=== PATIENT | female | born 1980 | race Caucasian/White ===

== ENCOUNTER 2018-02-12 13:56 | Emergency (ER) | payer SELFPAY ==
[2018-02-12 14:22] VITALS: BP 113/70
[2018-02-12] MEDS ORDERED: DIPH,PERTUSS(ACELL),TET VAC/PF 0.5 ML DISP.SYRIN IM ONE (14:27)
--- NOTE | 2018-02-12 14:32 | ED Physician Documentation ---
Foot Injury - HISTORIAN Historian: patient - HPI Stated Complaint: puncture wound Chief Complaint: Foot Injury Additional Information: Stepped on nail while taking down old deer blind at 1330 today. Last tetanus 20 years or more, - ROS CONST: no problems - PAST HX Past History: other (hysterectomy) Allergies/Adverse Reactions: Allergies Allergy/AdvReac Type Severity Reaction Status Date / Time aspirin AdvReac Severe Vomiting Verified 02/12/18 14:15 Home Medications: Ambulatory Orders Medication Instructions Recorded NK [NK] 02/12/18 - SOCIAL HX Smoking History: cigarettes - FAMILY HX Family History: no significant history - VITAL SIGNS Vital Signs: Vital Signs Temp Pulse Resp BP Pulse Ox 97.6 F 86 18 113/70 93 02/12/18 14:00 02/12/18 14:00 02/12/18 14:00 02/12/18 14:00 02/12/18 14:00 - REVIEWED ASSESSMENTS Nursing Assessment Reviewed: Yes Vitals Reviewed: Yes ED Results Lab/Radiology - Orders Orders: ED Orders Category Date Time Status Cleanse with NS and Chlorhexid 1T Care 02/12/18 14:27 Ordered Diph,Pertuss(Acell),Tet Vac/Pf [Adacel] Med 02/12/18 14:27 Once 0.5 ml IM .ONCE ONE Foot Injury Physical Exam - Physical Exam General Appearance: alert, mild distress, anxious Foot: left foot: soft tissue tenderness, swelling (mild, 2-3 mm puncture. No bleeding) Ankle: left: non-tender (DP 2+, PT 2+) Gait: antalgic gait Neuro: sensation nml, motor nml Vascular: no vascular compromise Tendons: tendon function nml Leg/Knee/Thigh: uninjured above ankle Skin: other (see above) Head/ENT: nml inspection Neck/Back: nml inspection Resp/CVS: no resp. distress Discharge Clincal Impression: Puncture wound of foot Qualifiers: Encounter type: initial encounter Laterality: left Qualified Code(s): S91.332A - Puncture wound without foreign body, left foot, initial encounter Referrals: Primary Doctor,No [Primary Care Provider] - 2 Days Additional Instructions: Keep your foot elevated as much as possible, with an ice pack to relieve discomfort. You can take 1000 mg of tylenol every 8 hours. You can also take 600 mg ibuprofen with food every 8 hours. Condition: Good Disposition: 01 HOME, SELF-CARE Decision to Admit: NO Decision Time: 14:30
== END 2018-02-12 14:42 | disposition home or self-care (01) ==
LOC: ED 13:56
DX: S91.332A Puncture wound without foreign body, left foot, initial encounter (principal); W45.0XXA Nail entering through skin, initial encounter; Y92.9 Unspecified place or not applicable
CPT/HCPCS: 90715; 96372; 99282

== ENCOUNTER 2018-03-20 20:33 | Emergency (ER) | payer SELFPAY ==
--- NOTE | 2018-03-20 21:08 | ED Physician Documentation ---
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 when she pushes broom etc against heavy resistance-no discharge or bleeding) Duration: waxing, waning Timing: still present Context: denies: out of country travel, bad food, recent trauma Severity: mild, moderate Quality: pain, dull, burning, sharp Associated Symptoms: none - ROS CONST: no problems GI/: none CVS/RESP: none EYES/ENT: none MS/SKIN/LYMPH: none NEURO/PSYCH: none - SOCIAL HX Smoking History: non-smoker Alcohol Use: none Drug Use: none - FAMILY HX Family History: no significant history - PAST HX Past History: none Surgeries/Procedures: BLT, other (tupt tubal ) Home Medications: Ambulatory Orders Medication Instructions Recorded Cephalexin [Keflex] 500 mg PO Q6H #40 capsule 02/12/18 Allergies/Adverse Reactions: Allergies Allergy/AdvReac Type Severity Reaction Status Date / Time aspirin AdvReac Severe Vomiting Verified 02/12/18 14:15 - VITAL SIGNS Vital Signs: Vital Signs Temp Pulse Resp BP Pulse Ox 113/70 02/12/18 14:42 - REVIEWED ASSESSMENTS Nursing Assessment Reviewed: Yes Vitals Reviewed: Yes Abdominal Pain Physical Exam - Physical Exam General Appearance: no acute distress, anxious EENT: eye inspection normal NECK: normal inspection RESPIRATORY: no resp distress, chest non-tender, breath sounds normal CVS: reg rate & rhythm, heart sounds normal ABDOMEN: soft, non-tender (very slight on deedp bilat inguinal poressure-reprod aforementioned lpain) SKIN: warm/dry, normal color. No: cyanosis, diaphoresis, jaundice EXTREMITIES: non-tender, normal range of motion NEURO: oriented X3, motor nml, sensation nml, mood/affect nml Vital Signs: Vital Signs Temp Pulse Resp BP Pulse Ox 113/70 02/12/18 14:42 Discharge Clincal Impression: uterine , prev tubal Referrals: Primary Doctor,No [Primary Care Provider] - 2 Days Comments: see ob soon yuliana if increase cramps pain or bleeding Condition: Good Disposition: 01 HOME, SELF-CARE Decision to Admit: NO Decision Time: 21:15
[2018-03-20 21:19] VITALS: BP 114/67
== END 2018-03-20 21:14 | disposition home or self-care (01) ==
LOC: ED 20:33
DX: R10.2 Pelvic and perineal pain (principal); Z33.1 Pregnant state, incidental
CPT/HCPCS: 81025; 99283